=== PATIENT | male | born 1960 | race Two or more races ===

== ENCOUNTER 2018-11-12 20:19 | Emergency (ER) | payer OTHER ==
[~2018-11-12] VITALS: Ht 180.3 cm; Wt 81.6 kg
[2018-11-12 20:27] VITALS: Ht 180.3 cm; Wt 81.6 kg
[2018-11-13 01:29] VITALS: BP 133/83
== END 2018-11-13 01:29 | disposition home or self-care (01) ==
LOC: ED 20:19
DX: S83.92XA Sprain of unspecified site of left knee, initial encounter (principal); S43.402A Unspecified sprain of left shoulder joint, initial encounter; W18.30XA Fall on same level, unspecified, initial encounter; Y93.89 Activity, other specified; Y92.89 Other specified places as the place of occurrence of the external cause; Y99.8 Other external cause status
CPT/HCPCS: J1885